=== PATIENT | female | born 1935 | race Two or more races ===

== ENCOUNTER 2023-11-05 14:01 | Emergency (ER) | payer OTHER ==
[~2023-11-05] VITALS: Ht 157.5 cm; Wt 56.2 kg
[2023-11-05] MEDS ORDERED: QUETIAPINE FUM400 M1 PO (14:05)
[2023-11-05] MEDS ORDERED: TRAZODONE HCL150 MG PO (14:05)
[2023-11-05] MEDS ORDERED: ARICEPT10 MG PO (14:06)
[2023-11-05] MEDS ORDERED: MECLIZINE HCL 25 MG TABLET PO ONE ×2 (15:14→15:15)
[2023-11-05] MEDS ORDERED: 0.9 % SODIUM CHLORIDE 1,000 ML IV SCH (15:15)
[2023-11-05 15:26] LABS: HEMATOCRIT 35.7 % (36.0-45.00); HEMOGLOBIN 12.2 g/dL (12.0-15.00); MEAN CELL VOLUME 91.9 fL (80.00-100.00); MEAN CORPUSCULAR HEMOGLOBIN 31.3 pg (27.00-32.0); MEAN CORPUSCULAR HGB CONC 34.1 g/dl (32.0-36.0); PLATELET COUNT 179 K/uL (150-450); RED BLOOD COUNT 3.89 M/uL (4.00-6.00); RED CELL DISTRIBUTION WIDTH 12.9 % (11.5-14.5)
[2023-11-05 15:34] LABS: ABG PO2 74.8 mmHg (80-100); ABG pCO2 35.2 mmHg (35-45); BASE EXCESS -0.9 mmol/l; BICARBONATE 22.8 mmol/l (23-25); SaO2 95.2 %; Tco2 23.9 mmol/l
[2023-11-05 15:42] LABS: allen test SATISFACTORY; o2 21 %; puncture site RADIAL RIGHT
[2023-11-05 15:56] LABS: ALBUMIN 3.5 gm/dL (3.4-5.0); BILIRUBIN TOTAL 0.44 mg/dL (0.3-1.2); CALCIUM 10.4 mg/dL (8.5-10.1); CREATININE SERUM 1.77 mg/dL (0.55-1.02); GFR 27.07; POTASSIUM 4.07 mEq/L (3.5-5.1); TOTAL PROTEIN 7.5 gm/dL (6.4-8.2)
[2023-11-05 16:27] LABS: URINE APPEARANCE Clear; URINE BILIRRUBIN Negative (NEGATIVE); URINE BLOOD Negative; URINE COLOR Yellow; URINE GLUCOSE Negative (NEGATIVE); URINE KETONE Negative (NEGATIVE); URINE LEUKOCYTE Small; URINE NITRATE Negative; URINE PROTEIN Negative (NEGATIVE); URINE UROBILINOGEN 0.2 E.U./dl
[2023-11-05 16:31] LABS: URINE EPITHELIAL CELLS 12.8 uL (0.0-38.8); URINE RBC 27.3 uL (0.0-20.8); URINE WBC 92.1 uL (0.0-23.2)
[2023-11-05 16:36] LABS: URINE BACTERIA > 9821.5 uL (0.0-1933)
== END 2023-11-05 21:22 | disposition home or self-care (01) ==
LOC: ER 14:03
PROVIDERS: General Practice
DX: R55 Syncope and collapse (principal); I95.9 Hypotension, unspecified; G30.9 Alzheimer's disease, unspecified; F02.80 Dementia in other diseases classified elsewhere, unspecified severity, without behavioral disturbance, psychotic disturbance, mood disturbance, and anxiety; E03.9 Hypothyroidism, unspecified; Z88.0 Allergy status to penicillin